=== PATIENT | female | born 1940 | race Caucasian/White ===

== ENCOUNTER → 2021-02-10 | Day surgery (SDC) | payer MEDICARE ==
[~2021-02-10] VITALS: Ht 170.2 cm; Wt 79.4 kg
[~2021-02-10] MED LIST: ASPIRIN EC81 MG PO; ASPIRIN325 M1 PO; BENAZEPRIL HCL20 MG PO; CERTAGEN1 EACH PO; KEFLEX250 MG PO; LOVAZA1 GM PO; MONODOX100 MG PO; PERCOCET 5-3251 EACH PO; TOPROL XL 25MG25 MG PO; VITAMIN D1000 UNIT PO; XARELTO10 MG PO; ZYRTEC10 M3 PO
[2021-02-10 12:00] LABS: HCT 42.3 % (37.0-47.0); HGB 13.7 g/dl (12.5-16.0); MCH 30.8 pg (25.0-31.0); MCHC 32.4 g/dL (32.0-36.0); MCV 95.1 fL (78.0-100.0); MPV 10.4 fL (6.0-9.5); RBC 4.45 M/uL (4.20-5.40); RDW 12.3 % (11.5-14.0)
[2021-02-10 12:24] LABS: BUN/CREAT RATIO (CALC) 32.5 RATIO; CREATININE 0.77 mg/dL (0.51-0.95); POTASSIUM 4.4 mmol/L (3.5-5.1)
== END | disposition home or self-care (01) ==
LOC: FAS 10:48
PROVIDERS: Anesthesiology; Legal Medicine
DX: G56.02 Carpal tunnel syndrome, left upper limb (principal); M65.342 Trigger finger, left ring finger; M24.842 Other specific joint derangements of left hand, not elsewhere classified; I48.91 Unspecified atrial fibrillation; I11.9 Hypertensive heart disease without heart failure; Z91.040 Latex allergy status; Z79.82 Long term (current) use of aspirin; Z79.02 Long term (current) use of antithrombotics/antiplatelets; Z79.899 Other long term (current) drug therapy
CPT/HCPCS: 36415; 80048; J0690; J2250; J2704; J2795; J3010; J7120

== ENCOUNTER 2021-07-04 11:04 | Day surgery (SDCO) | payer MEDICARE ==
[~2021-07-04] VITALS: Ht 170.2 cm; Wt 77.1 kg
[2021-07-04 12:55] LABS: BASOPHIL 0.8 % (0-2); EOSINOPHIL 2.4 % (0-7); HCT 42.6 % (37.0-47.0); HGB 13.4 g/dl (12.5-16.0); LYMPHOCYTE 33.1 % (15-48); MCH 29.7 pg (25.0-31.0); MCHC 31.5 g/dL (32.0-36.0); MCV 94.5 fL (78.0-100.0); MONOCYTE 5.8 % (0-12); NEUTROPHIL 57.6 % (41-80); NRBC 0; PLT 273 K/uL (150-400); RBC 4.51 M/uL (4.20-5.40); RDW 13.2 % (11.5-14.0); WBC 5.9 K/uL (4.0-10.5)
[2021-07-04 12:56] LABS: BILIRUBIN NEGATIVE (NEGATIVE); BLOOD 2+ Ery/uL (NEGATIVE); CLARITY CLEAR (CLEAR); COLOR YELLOW (YELLOW); GLUCOSE (U) NORMAL (NORMAL); LEUKOCYTES NEGATIVE Leu/uL (NEGATIVE); NITRITE NEGATIVE (NEGATIVE); PROTEIN NEGATIVE (NEGATIVE); UROBILINOGEN 0.2 mg/dL (0.2-1.0); pH 5.5 (5.0-9.0)
[2021-07-04 13:05] LABS: URINARY WBC RARE
[2021-07-04 13:18] LABS: IRON % SATURATION 16.5 %SAT (20-50)
[2021-07-04 13:25] LABS: ALBUMIN 4.3 g/dL (3.4-5.0); BILIRUBIN - TOTAL 0.6 mg/dL (0.2-1.0); BUN/CREAT RATIO (CALC) 21.3 RATIO; CREATININE 0.94 mg/dL (0.51-0.95); GLOBULIN (CALCULATION) 3.9 g/dL; MAGNESIUM 2.3 mg/dL (1.8-2.4); POTASSIUM 4.6 mmol/L (3.5-5.1); TOTAL PROTEIN 8.2 g/dL (6.4-8.2)
[2021-07-04 13:28] LABS: INR 1.49 (0.9-1.2); PROTHROMBIN TIME 17.3 SECONDS (11.8-13.4)
[2021-07-04] MEDS ORDERED: OCUVITE ADULT1 EAC1 PO (20:09)
[2021-07-04] MEDS ORDERED: CINNAMON500 MG PO (20:10)
[2021-07-05 05:43] LABS: BASOPHIL 1.2 % (0-2); HCT 35.9 % (37.0-47.0); HGB 11.4 g/dl (12.5-16.0); LYMPHOCYTE 43.8 % (15-48); MCH 29.8 pg (25.0-31.0); MCHC 31.8 g/dL (32.0-36.0); MONOCYTE 8.7 % (0-12); MPV 10.1 fL (6.0-9.5); NEUTROPHIL 42.1 % (41-80); NRBC 0; PLT 199 K/uL (150-400); RBC 3.82 M/uL (4.20-5.40); RDW 13.1 % (11.5-14.0); WBC 4.3 K/uL (4.0-10.5)
[2021-07-05 06:02] LABS: BUN/CREAT RATIO (CALC) 14.6 RATIO; CREATININE 0.96 mg/dL (0.51-0.95); MAGNESIUM 2.1 mg/dL (1.8-2.4); POTASSIUM 4.4 mmol/L (3.5-5.1)
[2021-07-05 14:07] LABS: HCT 36.6 % (37.0-47.0); HGB 11.6 g/dL (12.5-16.0)
[2021-07-06 05:41] LABS: BASOPHIL 0.9 % (0-2); EOSINOPHIL 3.5 % (0-7); HCT 35.2 % (37.0-47.0); HGB 11.1 g/dl (12.5-16.0); LYMPHOCYTE 39.5 % (15-48); MCH 29.8 pg (25.0-31.0); MCHC 31.5 g/dL (32.0-36.0); MCV 94.6 fL (78.0-100.0); MONOCYTE 6.7 % (0-12); NEUTROPHIL 49.4 % (41-80); NRBC 0; PLT 203 K/uL (150-400); RBC 3.72 M/uL (4.20-5.40); RDW 13.2 % (11.5-14.0); WBC 4.3 K/uL (4.0-10.5)
[2021-07-06 06:01] LABS: ALBUMIN 3.1 g/dL (3.4-5.0); BILIRUBIN - TOTAL 0.4 mg/dL (0.2-1.0); BUN/CREAT RATIO (CALC) 13.2 RATIO; CREATININE 1.06 mg/dL (0.51-0.95); GLOBULIN (CALCULATION) 3.2 g/dL; MAGNESIUM 1.9 mg/dL (1.8-2.4); PHOSPHORUS 3.4 mg/dL (2.6-4.7); POTASSIUM 4.1 mmol/L (3.5-5.1); TOTAL PROTEIN 6.3 g/dL (6.4-8.2)
[2021-07-07] MEDS ORDERED: PROTONIX 40MG T40 MG PO (09:27)
== END 2021-07-07 11:05 | disposition home or self-care (01) ==
LOC: FER 11:04 → FTCU 17:58 → FER 18:47 → FTCU 07-07 11:05
PROVIDERS: Emergency Medicine; Nurse Practitioner; ADMIT Internal Medicine
DX: K31.A11 Gastric intestinal metaplasia without dysplasia, involving the antrum (principal); K29.71 Gastritis, unspecified, with bleeding; K44.9 Diaphragmatic hernia without obstruction or gangrene; B96.81 Helicobacter pylori [H. pylori] as the cause of diseases classified elsewhere; K92.1 Melena; D62 Acute posthemorrhagic anemia; I10 Essential (primary) hypertension; I48.20 Chronic atrial fibrillation, unspecified; M19.90 Unspecified osteoarthritis, unspecified site; Z20.822 Contact with and (suspected) exposure to COVID-19; Z91.040 Latex allergy status; Z79.82 Long term (current) use of aspirin; Z79.01 Long term (current) use of anticoagulants; Z79.899 Other long term (current) drug therapy
CPT/HCPCS: 36415; 71045; 80048; 80053; 81001; 83540; 83550; 83735; 83880; 84100; 84145; 84439; 84443; 84484; 85014; 85018; 85025; 85610; 85730; 86850; 86900; 86901; 93005; C9113; G0378; J2704; J2916; J7030; Q9967; U0002